=== PATIENT | female | born 1995 | race African-American/Black ===

== ENCOUNTER 2016-08-18 08:37 | Emergency (ER) | payer OTHER ==
[2016-08-18 08:47] VITALS: BP 129/64; PULSE 80; RESP 20; TEMP 98.3
--- NOTE | 2016-08-18 09:11 | ED ---
ENT HPI - General Chief complaint: ENT Stated complaint: throat pain Time Seen by Provider: 08/18/16 09:00 Source: patient, RN notes reviewed Mode of arrival: ambulatory Limitations: no limitations - History of Present Illness Initial comments: 21 yo female presents to the ER with cc of throat pain. Patient does have a history of throat pain TIMES in the past she has had lymph nodes removed for the past and she normally sees ENT. She is currently trying to find a different ENT this is not like her current ENT. Patient states that she has still pain often. The optic had on antibiotics to get her to feel better. She has had lymph node procedure. Patient denies any high fevers with that she denies any cough. Patient denies any ear pain or runny nose. Patient states that she was concerned so she thought that she should be evaluated. Patient states that she is not currently having any other this time. Patient denies any recent fever, chills, shortness of breath, chest pain, back pain, abdominal pain , nausea vomiting, numbness or tingling, dysuria or hematuria, constipation or diarrhea, headaches or visual changes, or any other current symptoms. - Related Data Previous Rx's Medication Instructions Recorded Amoxicillin/Potassium Clav 1 tab PO Q12HR #20 tab 08/18/16 [Augmentin 875-125 Tablet] predniSONE 50 mg PO DAILY #5 tab 08/18/16 Allergies Allergy/AdvReac Type Severity Reaction Status Date / Time No Known Allergies Allergy Verified 08/18/16 08:59 Review of Systems ROS Statement: Those systems with pertinent positive or pertinent negative responses have been documented in the HPI. ROS Other: All systems not noted in ROS Statement are negative. Past Medical History Past Medical History: Asthma Additional Past Medical History / Comment(s): 05/2010-FELL IN PARKING LOT AND DEVELOPED BLOOD CLOT IN RT THIGH History of Any Multi-Drug Resistant Organisms: None Reported Past Surgical History: Appendectomy Additional Past Surgical History / Comment(s): lymph node removed from neck Past Anesthesia/Blood Transfusion Reactions: No Reported Reaction Past Psychological History: No Psychological Hx Reported Smoking Status: Current some day smoker Past Alcohol Use History: None Reported Past Drug Use History: None Reported - Past Family History Mother Family Medical History: No Reported History General Exam - General Exam Comments Initial Comments: General exam: Alert, active, comfortable in no apparent distress Head: Normocephalic Eyes: Normal reaction of pupils, equal size, normal range of extraocular motion Ears: normal external ear canals, pink tympanic membranes with normal cone of light Nose: clear with pink turbinates Throat: Erythema with no exudates with normal sized tonsils Neck: no masses, no nuchal rigidity, lymph node tenderness. Chest: no chest wall deformity Lungs: equal air entry with no crackles or wheeze CVS: S1 and S2 normal with no audible mumurs, regular rhythm Abdomen: no hepatosplenomegaly, normal bowel sounds, no guarding or rigidity Spine: no scoliosis or deformity Skin: no rashes Neurological: No focal deficits, tone is normal in all 4 extremities Limitations: no limitations Course Vital Signs 08/18/16 08:46 Temperature 98.3 F Pulse Rate 80 Respiratory 20 Rate Blood Pressure 129/64 O2 Sat by Pulse 100 Oximetry Medical Decision Making - Medical Decision Making 21-year-old female presents with what appears to be a pharyngitis. This was started on antibiotics and steroids. Due to patient's symptoms history we will give her follow-up with ENT who is Dr. Epps. We discussed return parameters and all the patient's questions. She stated that she understood she is in agreement with plan. She'll be discharged. Disposition Clinical Impression: Pharyngitis Disposition: HOME SELF-CARE Condition: Stable Instructions: Pharyngitis (ED) Additional Instructions: Please use medication as discussed. Please follow up with family doctor if symptoms have not improved over the next two days. Please return to the emergency room if your symptoms increase or worsen or for any other concerns. Prescriptions: Amoxicillin/Potassium Clav [Augmentin 875-125 Tablet] 1 tab PO Q12HR #20 tab predniSONE 50 mg PO DAILY #5 tab Referrals: None,Stated [Primary Care Provider] - 1-2 days Heriberto Devine MD [STAFF PHYSICIAN] - 1-2 days Time of Disposition: 09:11
== END 2016-08-18 09:22 | disposition home or self-care (01) ==
LOC: EC 08:37
DX: J02.9 Acute pharyngitis, unspecified (principal); F17.200 Nicotine dependence, unspecified, uncomplicated; Z87.898 Personal history of other specified conditions
CPT/HCPCS: 99282

== ENCOUNTER 2016-10-08 07:07 | Emergency (ER) | payer OTHER ==
[2016-10-08 07:19] VITALS: BP 116/61; PULSE 59; RESP 20; TEMP 98.1
--- NOTE | 2016-10-08 08:25 | ED ---
Extremity Problem HPI - General Chief complaint: Extremity Problem,Nontraumatic Stated complaint: Knee pain Time Seen by Provider: 10/08/16 08:10 Source: patient, RN notes reviewed Mode of arrival: wheelchair Limitations: no limitations - History of Present Illness Initial comments: Patient is 21-year-old female presents emergency room for reevaluation of left knee pain. Patient states when having left knee pain for the past few years. Patient states that she has seen her primary care provider and she was told it was her meniscus. Patient states she's been to physical therapy. Patient states her knee began bothering her again over the past few days. Patient states the pain is worse when she walks. Patient states that she has 3 jobs and walks a lot. Patient denies taking anything for pain. Patient denies applying ice to the area. Patient denies trying to keep weight off of her knee. Patient denies any recent injury or trauma to her knee. Patient just states the pain is not getting any better from walking. Patient denies following up with her primary care provider recently about her knee pain. Patient denies calf pain. Patient has numbness or tingling in her toes. Patient denies any other injuries or complaints at this time. - Related Data Home Medications Medication Instructions Recorded Confirmed Zofran Odt (Unknown Dose) 1 tab PO DAILY PRN 10/08/16 10/08/16 Previous Rx's Medication Instructions Recorded Naproxen [Naprosyn] 500 mg PO Q12HR PRN #20 tab 10/08/16 Allergies Allergy/AdvReac Type Severity Reaction Status Date / Time No Known Allergies Allergy Verified 10/08/16 08:03 Review of Systems ROS Statement: Those systems with pertinent positive or pertinent negative responses have been documented in the HPI. ROS Other: All systems not noted in ROS Statement are negative. Past Medical History Past Medical History: Asthma Additional Past Medical History / Comment(s): 05/2010-FELL IN PARKING LOT AND DEVELOPED BLOOD CLOT IN RT THIGH History of Any Multi-Drug Resistant Organisms: None Reported Past Surgical History: Appendectomy Additional Past Surgical History / Comment(s): lymph node removed from neck Past Anesthesia/Blood Transfusion Reactions: No Reported Reaction Past Psychological History: No Psychological Hx Reported Smoking Status: Current some day smoker Past Alcohol Use History: None Reported Past Drug Use History: None Reported - Past Family History Mother Family Medical History: No Reported History General Exam - General Exam Comments Initial Comments: Sitting in exam room in no acute distress. Limitations: no limitations General appearance: alert, in no apparent distress Head exam: Present: atraumatic, normocephalic, normal inspection Eye exam: Present: normal appearance ENT exam: Present: normal exam Neck exam: Present: normal inspection Respiratory exam: Present: normal lung sounds bilaterally. Absent: respiratory distress Cardiovascular Exam: Present: regular rate, normal rhythm, normal heart sounds Left Hip exam: Present: normal inspection, full ROM Upper Leg exam: Present: normal inspection, full ROM Knee exam: Present: normal inspection, full ROM, tenderness (Tenderness on palpating over the anterior patella and bilateral knee joints) Lower Leg exam: Present: normal inspection Ankle exam: Present: normal inspection Foot/Toe exam: Present: normal inspection Neurovascular tendon exam: Present: no vascular compromise. Absent: pulse deficit (2+ dorsal pedal posterior tibial pulses), abnormal cap refill ( Capillary refill is 2 seconds) Back exam: Present: normal inspection Neurological exam: Present: alert, oriented X3, CN II-XII intact Psychiatric exam: Present: normal affect, normal mood Skin exam: Present: warm, dry, intact, normal color. Absent: rash Course Vital Signs 10/08/16 07:16 Temperature 98.1 F Pulse Rate 59 L Respiratory 20 Rate Blood Pressure 116/61 O2 Sat by Pulse 100 Oximetry Medical Decision Making - Medical Decision Making Patient is 21-year-old female presents to the emergency room for evaluation of knee pain. X-ray shows no acute findings. Advised patient to follow-up with holistic specialist for further evaluation. Will send patient home with Naprosyn as needed for pain. Patient states she understands everything that was discussed with her. Return parameters discussed. Case discussed with Dr. Mosley. - Radiology Data Radiology results: report reviewed, image reviewed Disposition Clinical Impression: Left knee pain Disposition: HOME SELF-CARE Condition: Good Instructions: Knee Pain (ED) Additional Instructions: Rest, elevate and ice on and off for 10-15 minutes for the next 24-48 hours. Take Naprosyn as needed for pain. Please follow-up with holistic specialist in 7-10 days if symptoms do not improve. If new symptoms develop or symptoms worsen, please return to the ER. Prescriptions: Naproxen [Naprosyn] 500 mg PO Q12HR PRN #20 tab PRN Reason: Pain Referrals: Jayy Zavaleta MD [STAFF PHYSICIAN] - 10/15/16 Time of Disposition: 08:38
--- NOTE | 2016-10-08 08:33 | XR ---
EXAMINATION TYPE: XR knee complete LT DATE OF EXAM: 10/08/2016 8:29 AM COMPARISON: 10/20/2014 HISTORY: Pain TECHNIQUE: 3 views of the left ankle are submitted for evaluation. FINDINGS: There is no evidence for fracture or dislocation. Ankle mortise is intact. Soft tissues are within normal limits. IMPRESSION: 1. No evidence for acute fracture.
== END 2016-10-08 08:58 | disposition home or self-care (01) ==
LOC: EC 07:07
DX: M25.562 Pain in left knee (principal); R20.0 Anesthesia of skin; F17.200 Nicotine dependence, unspecified, uncomplicated
CPT/HCPCS: 99283